=== PATIENT | male | born 1980 | race Caucasian/White ===

== ENCOUNTER 2021-01-18 13:50 | Outpatient (RCR) | payer OTHER, SELFPAY ==
[2017-01-22 18:59] VITALS: BMI 33.0
== END 2021-01-18 23:59 ==
LOC: IMMUN 13:50
PROVIDERS: PCP Student in an Organized Health Care Education/Training Program; Visit Provider Family Medicine
DX: Z23 Encounter for immunization (principal)
CPT/HCPCS: 0011A; 0012A

== ENCOUNTER → 2021-06-02 09:19 | Outpatient (CLI) | payer OTHER, SELFPAY ==
[2017-01-22 18:59] VITALS: BMI 33.0
[2021-06-02 10:25] LABS: Anion Gap 5 (5-15); BUN 14 mg/dL (7-18); BUN/Creat Ratio 11.2 RATIO (10-20); Chloride 103 mmol/L (98-107); Creatinine, Serum 1.25 mg/dL (0.70-1.30); EST Glomerular Filtration Rate 67 mL/min (>60); Est Glom Filt Rate - Afr Amer 81 mL/min (>60); Glucose 99 mg/dL (74-106); Sodium Level 138 mmol/L (136-145)
== END ==
PROVIDERS: PCP Student in an Organized Health Care Education/Training Program; Referring Provider Otolaryngology; Visit Provider Otolaryngology
DX: R42 Dizziness and giddiness (principal)
CPT/HCPCS: 36415; 80048

== ENCOUNTER → 2021-06-14 07:16 | Outpatient (CLI) | payer OTHER, SELFPAY ==
--- NOTE | 2021-06-14 07:22 | MRI_ITS ---
History: DIZZINESS/LEFT HEARING LOSS -- EXAMINATION: MR Attn IACs and/or Temporal Bones WO/W Contrast TECHNIQUE: Multiplanar and multisequence MR images of the brain and small field of view sequences of the internal auditory canals were obtained before and after the administration of IV contrast. IV Contrast dosage and agent: 20ml iv Dotarem COMPARISON: None FINDINGS: RIGHT SIDE: SUPERFICIAL SOFT TISSUES: Unremarkable. MASTOID AIR CELLS: Well aerated, unremarkable. EXTERNAL AUDITORY CANALS AND MIDDLE EAR CAVITIES: Well aerated. INTERNAL AUDITORY CANALS: Unremarkable bilateral internal auditory canals. No intracanalicular schwannoma. INNER EAR: Unremarkable cochlea, vestibule and semicircular canals. CONTRAST: No abnormal enhancement of CN VII or VIII. LEFT SIDE: SUPERFICIAL SOFT TISSUES: Unremarkable. MASTOID AIR CELLS: Well aerated, unremarkable. EXTERNAL AUDITORY CANALS AND MIDDLE EAR CAVITIES: Well aerated. INTERNAL AUDITORY CANALS: Unremarkable bilateral internal auditory canals. No intracanalicular schwannoma. INNER EAR: Unremarkable cochlea, vestibule and semicircular canals. CONTRAST: No abnormal enhancement of CN VII or VIII. VISUALIZED BRAIN AND POSTERIOR FOSSA: Cerebello-pontine angles are unremarkable. IMPRESSION: Unremarkable pre and post-contrast MRI of the internal auditory canals. at 1702 Reported and signed by: Uday Suggs MD Electronically Signed: Uday Suggs MD at 17:01 EDT Tel , Service support , EXAM: MR HEAD WITHOUT AND WITH INTRAVENOUS CONTRAST : 1980 CLINICAL INDICATION: DIZZINESS/LEFT HEARING LOSS -- TECHNIQUE: Multiplanar and multisequence MR images of the brain were obtained without and with intravenous contrast. This report was created using [employer] report [employer] technology. CONTRAST: Not specified. COMPARISON: None. FINDINGS: BRAIN AND EXTRA-AXIAL SPACES: Unremarkable. No intra- or extra-axial hemorrhage. No evidence of acute infarct. No intracranial mass or mass effect. There is preservation of the sanders/white matter interface. Posterior fossa structures are unremarkable. Ventricles are appropriate for age. No hydrocephalus. Basal cisterns are patent. SELLA: Unremarkable. Normal sella turcica, pituitary gland, infundibular stalk, optic chiasm and hypothalamus. AUDITORY SYSTEM: Unremarkable. The internal auditory canals are patent. BONES/JOINTS: Unremarkable. No discrete lytic or blastic abnormalities. SINUSES: 16mm left maxillary mucus retention cyst is noted. MASTOID AIR CELLS: Unremarkable as visualized. Clear. ORBITS: Unremarkable as visualized. Both globes, extraocular muscles, optic nerves and retrobulbar fat appear unremarkable. VASCULATURE: Unremarkable as visualized. Normal flow voids in the major intracranial circulation. MRI/Brain W/WO Contrast IMPRESSION: Normal MRI brain with and without contrast. at 1704 Reported and signed by: Uday Suggs MD Electronically Signed: Uday Suggs MD at 17:03 EDT Tel , Service support ,
== END ==
PROVIDERS: PCP Student in an Organized Health Care Education/Training Program; Referring Provider Otolaryngology; Visit Provider Otolaryngology
DX: H91.92 Unspecified hearing loss, left ear (principal); R42 Dizziness and giddiness
CPT/HCPCS: 70553; A9575